=== PATIENT | male | born 1935 | race Caucasian/White ===

== ENCOUNTER 2020-06-12 08:08 | Observation (INO) ==
[2020-06-12 08:42] LABS: Basophils % 0.4 % (0.0-0.8); Eosinophils # 0.1 10*3/uL (0.0-0.87); Eosinophils % 0.6 % (0.00-10.9); Hematocrit 25.5 VOL% (42.0-52.0); Hemoglobin 8.4 GM/DL (14.0-18.0); Immature Granulocytes % 0.4 %; Immature Granulocytes Absolute 0.05 #; Lymphocytes % 8.9 % (21.2-54.2); Mean Corpuscular HGB Conc 32.9 GM/DL (32-36); Mean Corpuscular Volume 93.4 FL (87-102); Mean Platelet Volume 9.3 FL (9.6-12.0); Monocytes % 9.9 % (1.7-12.7); Neutrophils % 79.8 % (38.7-73.9); Platelet Count 237 T/CUMM (130-400); Red Blood Count 2.73 MC/CUMM (3.8-5.5); Red Cell Distribution Width 13.2 % (9.3-17.3); White Blood Count 11.4 T/CUMM (4-12)
[2020-06-12 08:58] LABS: PT Patient Result 50.8 SECS (9.8-11.9)
[2020-06-12 08:59] LABS: INR 5.2
[2020-06-12 09:02] LABS: Albumin 2.7 G/DL (3.4-5.0); Bilirubin,Total 0.6 MG/DL (0.2-1.0); Calcium 9.4 MG/DL (8.5-10.1); Osmolality,Calculated 290.3 MOS/KG (273-304)
[2020-06-12 10:05] LABS: Bilirubin,Urine Negative (Negative); Blood, Urine Negative (Negative); Glucose,Urine (UA) Negative (Negative); Ketones,Urine Negative (Negative); Nitrite,Urine Negative (Negative); Protein,Urine Negative; RBC,Urine <1 /HPF (0-4); Squamous Epithelial Cell,Urine Occasional /HPF (0-10); Urine Appearance CLEAR (Clear); Urine Color Yellow (Yellow); Urine Specific Gravity 1.014 (1.001-1.035); Urine Urobilinogen < 2.0 EU/DL (0.2-1.0)
[2020-06-12] MEDS ORDERED: LACTULOSE 20 GM/30 ML UDCUP PO PRN (10:56)
[2020-06-12] MEDS ORDERED: ONDANSETRON 4 MG/2 ML VIAL IV PRN (10:56)
[2020-06-12] MEDS ORDERED: GLUCAGON 1 MG VIAL IM PRN (10:56)
[2020-06-12] MEDS ORDERED: DEXTROSE 50% 25 GM/50 ML VIAL IV PRN (10:56)
[2020-06-12] MEDS ORDERED: DOCUSATE SODIUM 100 MG CAPSULE PO PRN (10:56)
[2020-06-12] MEDS: ACETAMINOPHEN 325 MG TABLET PO PRN ×2 (14:34→19:35)
[2020-06-12] MEDS: SODIUM CHLORIDE 0.9% 1,000 ML IV SCH ×2 (14:34→21:42)
[2020-06-12] MEDS: DILTIAZEM CD 120 MG CAPSULE PO SCH ×2 (14:34→21:42)
[2020-06-12] MEDS ORDERED: INFLUENZA VIRUS VACCINE 0.5 ML SYRINGE IM ONE (14:42)
[2020-06-12] MEDS: SIMVASTATIN 20 MG TABLET PO SCH (21:41)
[2020-06-12] MEDS: METOPROLOL TARTRATE 100 MG TABLET PO SCH (21:42)
[2020-06-13] MEDS: LEVOTHYROXINE 200 MCG TABLET PO SCH (05:35)
[2020-06-13] MEDS: ACETAMINOPHEN 325 MG TABLET PO PRN ×2 (05:35→11:30)
[2020-06-13 05:51] LABS: INR 2.8
[2020-06-13 06:55] LABS: Albumin 2.2 G/DL (3.4-5.0); Bilirubin,Total 0.9 MG/DL (0.2-1.0); Calcium 8.6 MG/DL (8.5-10.1); Osmolality,Calculated 298.8 MOS/KG (273-304); Risk Ratio 2.63; Thyroid Stimulating Hormone 0.037 uIU/ml (0.358-3.74); Total Protein 5.3 G/DL (6.4-8.3); VLDL CHOLESTEROL 16.8 MG/DL
[2020-06-13 07:05] LABS: Basophils % 0.3 % (0.0-0.8); Eosinophils # 0.2 10*3/uL (0.0-0.87); Hematocrit 21.4 VOL% (42.0-52.0); Hemoglobin 6.8 GM/DL (14.0-18.0); Immature Granulocytes % 0.5 %; Immature Granulocytes Absolute 0.05 #; Lymphocytes # 1.6 10*3/uL (1.4-4.0); Lymphocytes % 16.7 % (21.2-54.2); Mean Corpuscular HGB Conc 31.8 GM/DL (32-36); Mean Corpuscular Volume 97.3 FL (87-102); Mean Platelet Volume 9.4 FL (9.6-12.0); Monocytes % 13.7 % (1.7-12.7); Neutrophils % 66.8 % (38.7-73.9); Platelet Count 192 T/CUMM (130-400); Red Cell Distribution Width 13.2 % (9.3-17.3); White Blood Count 9.6 T/CUMM (4-12)
[2020-06-13 07:05] LABS: PT Patient Result 28.2 SECS (9.8-11.9)
[2020-06-13] MEDS ORDERED: SODIUM CHLORIDE 0.9% 1,000 ML IV PRN (07:46)
[2020-06-13] MEDS: METOPROLOL TARTRATE 100 MG TABLET PO SCH ×2 (08:12→20:49)
[2020-06-13] MEDS: DILTIAZEM CD 120 MG CAPSULE PO SCH ×2 (08:12→20:49)
[2020-06-13] MEDS: SIMVASTATIN 20 MG TABLET PO SCH (08:12)
[2020-06-13] MEDS: PANTOPRAZOLE 40 MG TABLET PO SCH (08:12)
[2020-06-13] MEDS: ENALAPRIL 10 MG TABLET PO SCH (08:12)
[2020-06-13 09:22] LABS: Folate 7.6 NG/ML (5.4-24.0)
[2020-06-13 09:41] LABS: % Iron Saturation 29.2 % (18-50); Ferritin 95.1 ng/ml (26-388)
[2020-06-13] MEDS: SODIUM CHLORIDE 0.9% 1,000 ML IV SCH (11:42)
[2020-06-13 14:51] LABS: Hematocrit 27.6 VOL% (42.0-52.0); Hemoglobin 9.1 GM/DL (14.0-18.0)
[2020-06-14] MEDS: SODIUM CHLORIDE 0.9% 1,000 ML IV SCH ×2 (03:34→03:35)
[2020-06-14 04:23] LABS: Basophils % 0.5 % (0.0-0.8); Eosinophils # 0.3 10*3/uL (0.0-0.87); Eosinophils % 3.5 % (0.00-10.9); Hematocrit 26.5 VOL% (42.0-52.0); Hemoglobin 8.6 GM/DL (14.0-18.0); Immature Granulocytes % 0.6 %; Immature Granulocytes Absolute 0.05 #; Lymphocytes # 1.4 10*3/uL (1.4-4.0); Lymphocytes % 16.6 % (21.2-54.2); Mean Corpuscular HGB Conc 32.5 GM/DL (32-36); Mean Platelet Volume 9.8 FL (9.6-12.0); Monocytes % 15.1 % (1.7-12.7); Neutrophils % 63.7 % (38.7-73.9); Platelet Count 203 T/CUMM (130-400); Red Blood Count 2.85 MC/CUMM (3.8-5.5); White Blood Count 8.7 T/CUMM (4-12)
[2020-06-14 04:51] LABS: Albumin 2.3 G/DL (3.4-5.0); Bilirubin,Total 0.9 MG/DL (0.2-1.0); Calcium 8.3 MG/DL (8.5-10.1); Osmolality,Calculated 293.1 MOS/KG (273-304); Total Protein 5.2 G/DL (6.4-8.3)
[2020-06-14 05:10] LABS: INR 1.4; PT Patient Result 15.1 SECS (9.8-11.9)
[2020-06-14] MEDS: LEVOTHYROXINE 200 MCG TABLET PO SCH (05:38)
[2020-06-14] MEDS: DILTIAZEM CD 120 MG CAPSULE PO SCH (08:43)
[2020-06-14] MEDS: ENALAPRIL 10 MG TABLET PO SCH (08:43)
[2020-06-14] MEDS: PANTOPRAZOLE 40 MG TABLET PO SCH (08:44)
[2020-06-14] MEDS: METOPROLOL TARTRATE 100 MG TABLET PO SCH (08:44)
[2020-06-14] MEDS: SIMVASTATIN 20 MG TABLET PO SCH (08:44)
[2020-06-14 08:46] VITALS: BP 135/67
[2020-06-14] MEDS ORDERED: FERROUS SULFATE 325 MG TABLET PO SCH (09:00)
[2020-06-14] MEDS ORDERED: APIXABAN 2.5 MG TABLET PO SCH (09:00)
== END 2020-06-14 12:15 | disposition home or self-care (01) ==
LOC: N.EDINP 08:08 → N.ED 08:08 → N.TELES 13:19
PROVIDERS: ADMIT Internal Medicine; ATTEND Internal Medicine